=== PATIENT | male | born 1970 | race Caucasian/White ===

== ENCOUNTER → 2022-05-19 | Outpatient (CLI) | payer SELFPAY ==
[~2022-05-19] MED LIST: CLARITIN10 MG PO; IBUPROFEN600 MG PO; LISINOPRIL10 MG PO; MECLIZINE HCL25 MG PO; TRANSDERM-SCOP1.5 MG TD
== END ==
LOC: LAB 15:22
DX: E03.9 Hypothyroidism, unspecified (principal)
CPT/HCPCS: 36415; 84439; 84443